=== PATIENT | female | born 1980 | race Caucasian/White ===

== ENCOUNTER 2020-12-20 06:16 | Emergency (ER) | payer OTHER ==
[~2020-12-20] VITALS: Ht 175.3 cm; Wt 58.9 kg
[2020-12-20] MEDS ORDERED: SODIUM CHLORIDE 0.9% 1,000ML IVBOLUS ONE (07:30)
[2020-12-20 07:39] LABS: BASOPHILS % (AUTO) 1 % (0-1); EOSINOPHILS % (AUTO) 0 % (1-7); LYMPHOCYTES % (AUTO) 13 % (22-44); MEAN CORPUSCULAR HEMOGLOBIN 30.2 pg (27.0-34.8); MEAN CORPUSCULAR HGB CONC 33.6 g/dL (32.4-35.8); MEAN PLATELET VOLUME 8.4 fL (7.4-10.4); MONOCYTES % (AUTO) 4 % (2-9); NEUTROPHILS % (AUTO) 83 % (42-75); PLATELET COUNT 259 x10^3/uL (130-400); RED BLOOD COUNT 4.64 x10^6/uL (3.82-5.3); RED CELL DISTRIBUTION WIDTH 13.5 % (9.6-15.2)
[2020-12-20 07:50] LABS: ALBUMIN 4.1 g/dL (3.4-5.0); ANION GAP 7 mmol/L (5-15); CALCIUM 8.8 mg/dL (8.5-10.1); CHLORIDE 108 mmol/L (98-107); CREATININE 0.71 mg/dL (0.55-1.02)
[2020-12-20 07:54] LABS: ALANINE AMINOTRANSFERASE 15 U/L (12-78); ALKALINE PHOSPHATASE 80 U/L (45-117); BILIRUBIN,TOTAL 0.6 mg/dL (0.2-1.0); TOTAL PROTEIN 7.4 g/dL (6.4-8.2)
--- NOTE | 2020-12-20 08:11 | NUR ---
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
[2020-12-20 08:48] LABS: MICROSCOPIC AUTO
[2020-12-20] MEDS ORDERED: ONDANSETRON 2MG/ML, 2ML ONE (08:48)
[2020-12-20] MEDS ORDERED: KETOROLAC 30 MG/1 ML ONE (08:48)
[2020-12-20] MEDS ORDERED: MORPHINE SULFATE 4 MG/ML, 1ML ONE (08:49)
--- NOTE | 2020-12-20 08:55 | NUR ---
PT MEDICATED PER EMAR. RESTING ON GURNEY W/ CALL LIGHT IN REACH, SIDE RAILS UPX2 AND FAMILY AT BEDSIDE. VSS, TEDN. AWAITING CT.
[2020-12-20] MEDS ORDERED: SODIUM CHLORIDE FLUSH 10ML SYR IVF ONE (09:00)
[2020-12-20] MEDS ORDERED: MORPHINE SULFATE 4 MG/ML, 1ML IVPush PRN (09:00)
[2020-12-20] MEDS ORDERED: KETOROLAC 30 MG/1 ML IVPush ONE (09:00)
[2020-12-20] MEDS ORDERED: SODIUM CHLORIDE 0.9% 1,000ML IV ONE (09:00)
[2020-12-20] MEDS ORDERED: ONDANSETRON 2MG/ML, 2ML IVPush ONE (09:00)
[2020-12-20 09:39] VITALS: BP 119/84
[2020-12-20] MEDS ORDERED: ACETAMINOPHEN 500 MG TABLET PO ONE (10:00)
== END 2020-12-20 10:50 | disposition home or self-care (01) ==
LOC: ED 10:44
DX: N13.2 Hydronephrosis with renal and ureteral calculous obstruction (principal); N21.1 Calculus in urethra; R11.0 Nausea; Z87.891 Personal history of nicotine dependence; Z90.710 Acquired absence of both cervix and uterus
CPT/HCPCS: 36415; 74176; 80053; 81001; 83690; 84703; 85025; 87086; 96361; 96374; 96375; 99284; J1885; J2270; J2405; J7030

== ENCOUNTER 2020-12-22 20:51 | Emergency (ER) | payer OTHER ==
[~2020-12-22] VITALS: Ht 175.3 cm; Wt 60.0 kg
[2020-12-22 21:27] LABS: MICROSCOPIC AUTO
[2020-12-22 22:23] LABS: BASOPHILS % (AUTO) 1 % (0-1); EOSINOPHILS % (AUTO) 0 % (1-7); LYMPHOCYTES % (AUTO) 16 % (22-44); MEAN CORPUSCULAR HEMOGLOBIN 30.8 pg (27.0-34.8); MEAN PLATELET VOLUME 8.6 fL (7.4-10.4); MONOCYTES % (AUTO) 7 % (2-9); NEUTROPHILS % (AUTO) 76 % (42-75); PLATELET COUNT 206 x10^3/uL (130-400); RED BLOOD COUNT 4.16 x10^6/uL (3.82-5.3); RED CELL DISTRIBUTION WIDTH 13.3 % (9.6-15.2)
[2020-12-22 22:53] LABS: ALBUMIN 3.9 g/dL (3.4-5.0); ANION GAP 6 mmol/L (5-15); CALCIUM 9.3 mg/dL (8.5-10.1); CHLORIDE 113 mmol/L (98-107)
[2020-12-22] MEDS ORDERED: ONDANSETRON 2MG/ML, 2ML ONE (22:58)
[2020-12-22] MEDS ORDERED: MORPHINE SULFATE 4 MG/ML, 1ML ONE (22:59)
[2020-12-22] MEDS ORDERED: ONDANSETRON 2MG/ML, 2ML IVPush ONE (23:00)
[2020-12-22] MEDS: MORPHINE SULFATE 4 MG/ML, 1ML IVPush PRN (23:03)
[2020-12-22 23:08] LABS: ALANINE AMINOTRANSFERASE 14 U/L (12-78); ALKALINE PHOSPHATASE 79 U/L (45-117); BILIRUBIN,TOTAL 0.7 mg/dL (0.2-1.0); CREATININE 0.65 mg/dL (0.55-1.02); TOTAL PROTEIN 6.8 g/dL (6.4-8.2)
--- NOTE | 2020-12-23 00:08 | NUR ---
patient arrived to ED with complaints of abdominal pain in all quadrants. Patient states that she had kidneys stones last week and was seen at [facility] for this issue. Patient states that she passed the stone, but is now having the same type of pain she had when was passing the stone earlier last week. Patient came in for further evaluation at this ER
[2020-12-23] MEDS ORDERED: MORPHINE SULFATE 4 MG/ML, 1ML ONE (01:19)
[2020-12-23] MEDS: MORPHINE SULFATE 4 MG/ML, 1ML IVPush PRN (01:21)
--- NOTE | 2020-12-23 01:45 | NUR ---
PATIENT DISPLAYING OBVIOUS ANXIETY AND WITH COMPLAINTS OF SEVERE STOMACH PAIN. HERVE MCLEAN INSTRUCTED RN TO GIVE ATIVAN 1MG IVP ONCE FOR ANXIETY. RN TO PLACE ORDER FOR MD
[2020-12-23] MEDS ORDERED: LORazepam 2 MG/ML, 1ML ONE (01:46)
[2020-12-23 01:59] VITALS: BP 118/43
[2020-12-23] MEDS ORDERED: LORazepam 2 MG/ML, 1ML IVPush ONE (02:00)
--- NOTE | 2020-12-23 02:35 | NUR ---
RECHECKED ON PATIENT STATES THAT SHE HAS NO ANXIETY AND HER PAIN IS RATED A 3/10 FROM A 10/10. PATIENT IN NO DISTRESS ANYMORE AND HAS NO CURRENT NEEDS AT THIS TIME. AND PATIENT ALSO UPDATED ON THE PLAN OF CARE
== END 2020-12-23 04:06 | disposition home or self-care (01) ==
LOC: ED 22:49
DX: N83.292 Other ovarian cyst, left side (principal)
CPT/HCPCS: 36415; 74176; 76830; 80053; 81001; 85025; 87086; 96374; 96375; 96376; 99285; J2060; J2270; J2405

== ENCOUNTER 2020-12-26 14:13 | Emergency (ER) | payer OTHER ==
[~2020-12-26] VITALS: Ht 175.3 cm; Wt 128.0 kg
[2020-12-26] MEDS ORDERED: SODIUM CHLORIDE 0.9% 1,000ML IVBOLUS ONE (15:30)
[2020-12-26 16:01] LABS: BASOPHILS % (AUTO) 1 % (0-1); EOSINOPHILS % (AUTO) 0 % (1-7); LYMPHOCYTES % (AUTO) 14 % (22-44); MEAN CORPUSCULAR HEMOGLOBIN 30.2 pg (27.0-34.8); MEAN CORPUSCULAR HGB CONC 33.5 g/dL (32.4-35.8); MEAN PLATELET VOLUME 8.6 fL (7.4-10.4); MONOCYTES % (AUTO) 8 % (2-9); NEUTROPHILS % (AUTO) 78 % (42-75); PLATELET COUNT 231 x10^3/uL (130-400); RED BLOOD COUNT 4.58 x10^6/uL (3.82-5.3); RED CELL DISTRIBUTION WIDTH 13.6 % (9.6-15.2)
[2020-12-26 16:03] LABS: ALANINE AMINOTRANSFERASE 16 U/L (12-78); ALBUMIN 3.9 g/dL (3.4-5.0); ANION GAP 8 mmol/L (5-15); CALCIUM 9.1 mg/dL (8.5-10.1); CHLORIDE 111 mmol/L (98-107); CREATININE 0.69 mg/dL (0.55-1.02)
[2020-12-26 16:05] LABS: ALKALINE PHOSPHATASE 78 U/L (45-117); BILIRUBIN,TOTAL 0.5 mg/dL (0.2-1.0)
--- NOTE | 2020-12-26 18:28 | NUR ---
Note maryuri in EDM - 12/26/20 at 1941 by JAJA PT REPORTS SHE WAS RECENTLY DIAGNOSED WITH A UTI AND FINISHED HER ABX. PT IS HAVING LOWER CENTER ABD PAIN. VS STABLE. AT BEDSIDE. PT WENT TO RADIOLOGY.
--- NOTE | 2020-12-26 18:28 | NUR ---
PT REPORTS SHE WAS RECENTLY DIAGNOSED WITH A UTI AND JUST STARTED HER ABX. PT IS HAVING LOWER CENTER ABD PAIN. VS STABLE. AT BEDSIDE. PT WENT TO RADIOLOGY.
[2020-12-26 18:55] LABS: MICROSCOPIC INDICATED
--- NOTE | 2020-12-26 19:04 | NUR ---
PT WATCHING TV IN ROOM. VS STABLE. AT BEDSIDE. CALL LIGHT IN PLACE. WILL CONTINUE TO MONITOR.
--- NOTE | 2020-12-26 19:41 | NUR ---
DR RASMUSSEN IN ROOM
[2020-12-26] MEDS ORDERED: ONDANSETRON ODT 4 MG ONE (20:15)
[2020-12-26 20:17] VITALS: BP 128/69
[2020-12-26] MEDS ORDERED: ONDANSETRON ODT 4 MG PO ONE (20:30)
== END 2020-12-26 20:39 | disposition home or self-care (01) ==
LOC: ED 18:37
DX: R10.30 Lower abdominal pain, unspecified (principal); R11.0 Nausea; Z87.891 Personal history of nicotine dependence
CPT/HCPCS: 36415; 74021; 80053; 81001; 85025; 87086; 96360; 99285; J7030; Q0162